=== PATIENT | female | born 1975 | race Caucasian/White ===

== ENCOUNTER 2016-11-02 14:01 | Emergency (ER) | payer OTHER ==
--- NOTE | 2016-11-02 16:21 | DIAGNOSTIC IMAGING REPORT ---
PROCEDURE: XR LUMBAR SPINE 2 OR 3 VIEWS INDICATION: LOWER EXTERMITY TINGLING TECHNIQUE: Three views. COMPARISON: Lumbar MRI 12/22/2009 FINDINGS: There is a fusion of L5-S1. There is new spondylosis at L4-5 with a grade 1 spondylolisthesis. IMPRESSION: 1. New spondylosis and spondylolisthesis at L4-5.
--- NOTE | 2016-11-02 16:26 | ED ORDER SUMMARY ---
..... Patient: SPRING FRITZ OrderSheet VisitID: [id number] [place] [address] 41y, F Registration Date/Time: 11/02/2016 ORDER SHEET Weight: 104.3 kg (stated) Allergies: Doxycycline, Codeine GENERAL ORDERS: Lumbar Spine 2 or 3V Urgent (15:00 11/02/2016 Carmen SLAUGHTER) (Ack 15:15 LTapper) (16:16 MCampbell) MEDICATION ORDERS: Dilaudid IM 1 mg (HIGH ALERT MEDICATION, NOW) (14:59 11/02/2016 Carmen SLAUGHTER) (15:20 EInderbitzen R.N.) Toradol IM 60 mg (NOW) (14:59 11/02/2016 Carmen SLAUGHTER) (15:21 EInderbitzen R.N.) Flexeril PO 10 mg (NOW) (15:00 11/02/2016 Carmen SLAUGHTER) (15:21 EInderbitzen R.N.) IV FLUIDS: ORDER SHEET NOTES: [Electronically signed by Demi Wilson R.N. (16:35 11/02/2016)] [Electronically signed by Jaycee Estes MD (08:09 11/08/2016)] [Electronically locked/signed by Demi Wilson R.N. (16:35 11/02/2016)]
--- NOTE | 2016-11-02 16:26 | ED CLINICAL REPORT ---
Clinical Report - Physicians/Mid Levels [facility] [address] [place] [address] 11/02/2016 14:01 Patient: SPRING FRITZ Time Seen: 14:20. Arrived- By private vehicle. Historian- patient. HISTORY OF PRESENT ILLNESS Chief Complaint: BACK PAIN. It is described as being moderate in degree and in the area of the left side of the upper lumbar spine and radiating to the right thigh. The quality is noted to be "pain" and similar to prior episodes. Modifying factors- worsened by rotation of the body to the right or left, bending over or lifting. Not relieved by anything. Onset was last night and it is still present. No bladder dysfunction, bowel dysfunction, sensory loss or motor loss. Patient notes the possibility of an injury. Mechanism of injury- (PT states she lifted her [id number] off of the toilet 2 weeks ago, but has not had any problems with the back until now.). No other injury. Similar symptoms previously: Occasionally. Recent medical care: Not recently seen/assessed. REVIEW OF SYSTEMS No fever, chills, eye discomfort, headache or depression. No sore throat, cough, difficulty breathing, chest pain or skin rash. No abdominal pain, nausea, vomiting, diarrhea or black stools. No difficulty with urination, urinary frequency, hematuria or bloody stools. All systems otherwise negative, except as recorded above. PAST HISTORY Problems: Obesity. Hypertension. Immunizations. LNMP - Last Normal Menstrual Period. Additional Surgeries: Back Surgery. Dental Surgery. Medications: Lisinopril Oral (Tablet 20 mg) 1 tablet, daily. Methadone 55 mg, daily. Allergies: Codeine. Doxycycline. SOCIAL HISTORY Never smoker. No alcohol use or drug use. ADDITIONAL NOTES The nursing notes have been reviewed. PHYSICAL EXAM Vital Signs: 11/02/2016 14:14 BP: 150/101. HR: 110. RR: 24. O2 saturation: 96%. Temp: 99.1 F. Have been reviewed. Appearance: Alert. No acute distress. (Pt appears moderately uncomfortable.). HEENT: Normal external inspection. Eyes: Pupils equal, round and reactive to light. Neck: Normal inspection. Neck nontender. Painless ROM. CVS: Normal heart rate and rhythm. Heart sounds normal. Pulses normal. Respiratory: No respiratory distress. Breath sounds normal. Abdomen: Normal inspection. Soft and nontender. Back: Moderately limited ROM in the back- in the lumbar spine: decreased flexion, extension, right lateral bending, left lateral bending and rotation to the right and left (R lumbar paraspinal muscular tenderness). Skin: Skin warm and dry. Normal skin color. No rash. Normal skin turgor. Extremities: Extremities exhibit normal ROM. Extremities nontender. Neuro: Oriented X 3. Mood/affect normal. No motor deficit. No sensory deficit. LABS, X-RAYS, AND EKG Pulse Oximetry: 11/02/2016 14:14 O2 saturation: 96%. (FIO2 - room air). Interpretation: normal. PROGRESS AND PROCEDURES Course of Care: Pt was treated symptomatically with Toradol, Dilaudid, and Flexeril, with improvement. No evidence of an emergent condition associated with the pt's back pain. Patient counseled in person regarding the patient's stable condition, diagnosis and need for follow-up. Concerns were addressed. Old medical records reviewed. Disposition: Discharged. Condition: stable and improved. CLINICAL IMPRESSION Chronic nontraumatic lumbar back pain associated with degenerative disc disease of the lumbar spine. Sciatica present on the left. INSTRUCTIONS Apply ice for 15-20 minutes three times a day as needed and until better. Don't apply ice directly to skin and don't use while asleep. (Your x-ray looks good--the hardware is all in place. You will need to follow up with your primary doctor to see if you are in need of another MRI.). Warnings: SEDATIVE MEDICATION: You were given sedative medication during your visit. Do not drive or operate dangerous machinery for 6 hours. GENERAL WARNINGS: Return or contact your physician immediately if your condition worsens or changes unexpectedly, if not improving as expected, or if other problems arise. Your Current Medications: CONTINUE TAKING THE FOLLOWING MEDICATIONS: Lisinopril Oral : Tablet 20 mg, 1 tablet daily. Methadone* : 55 mg daily. Prescription Medications: Hydrocodone/APAP 5mg / 325mg: take 1-2 orally every 6 hours as needed for pain. Dispense five (5). No refill. Flexeril 10 mg: take 1 orally every 8 hours as needed for pain. Dispense twenty (20). No refills. Substitution is permissible. Understanding of the discharge instructions verbalized by patient and family. Follow-up with: [facility], , , [address], , [place], [id number] Follow up. Call for the next available appointment. Reason for referral: Follow up back pain. (Electronically signed by Jaycee Estes MD 11/08/2016 8:09)
--- NOTE | 2016-11-02 16:26 | ED NURSING NOTES ---
Clinical Report - Nurses [facility] [address] [place] [address] 11/02/2016 14:01 Patient: SPRING FRITZ TRIAGE Triage time 14:Nov 02 2016. --14:15 Demi Wilson R.N. Acuity: LEVEL 4. Chief Complaint: BACK PAIN. 14:14 11/02/16. SEPSIS SCREEN: Sepsis Screen: negative. Negative (no infection suspected/documented). TIFFANIE COMA SCORE: [place] Coma Scale: 15- eyes open spontaneously (4); best verbal response- oriented x 4 (5); best motor response- obeys commands (6). --14:23 Demi Wilson R.N. 14:14 11/02/16. BP: 150/101. HR: 110. RR: 24. O2 saturation: 96%. Temp: 99.1 F. Pain level now 10/10. --14:23 Demi Wilson R.N. Weight: 104.3 kg stated. Height/Length: 62 inches Per Patient. BMI: 42.1. --14:14 Demi Wilson R.N. Medications Methadone 55 mg, daily. --14:21 Demi Wilson R.N. Lisinopril Oral (Tablet 20 mg) 1 tablet, daily. --14:22 Demi Wilson R.N. Allergies Doxycycline. --14:17 Demi Wilson R.N. Codeine. --14:17 Demi Wilson R.N. Medication/allergy information source: the patient. --14:23 Demi Wilson R.N. History Arrived by private vehicle. Historian: patient. Accompanied by family. This started today. ( Pt states had back surgery in 2009. No problems until today. She does report that she lifted her mother off a toilet 2 weeks ago.). She has had trouble walking. No history of recent trauma. Treatment PERSONAL SERVICE REPRESENTATIVE: Took Tylenol and ibuprofen. PAST MEDICAL HX: Last normal menstrual period now. Has not received seasonal influenza immunization. SOCIAL HX: Never smoker. No alcohol use or drug use. No infectious disease exposure. ABUSE ASSESSMENT: No report of abuse. SELF HARM ASSESSMENT: A self harm assessment was performed. The patient answered "no" to the question "Have you recently felt down, depressed, or hopeless?", "Have you noticed less interest or pleasure in doing things?", "Do you have thoughts of harming or killing yourself?", "Are you here because you tried to hurt yourself?", "Have you ever tried to hurt yourself before today?", "Have you recently had thoughts about harming or killing others?" and "Do you have any dangerous items in your possession?". FALL RISK ASSESSMENT: Fall risk assessment completed. No fall risk identified. NUTRITIONAL RISK ASSESSMENT: The nutritional risk assessment revealed no deficiencies. FUNCTIONAL ASSESSMENT: Functional assessment: no impairments noted. LEARNING NEEDS ASSESSMENT: The learning needs assessment revealed no barriers. SKIN INTEGRITY ASSESSMENT: Skin integrity risk assessment completed. No skin integrity risk identified. --14:23 Demi Wilson R.N. PROBLEMS: Lumbar fractures from trauma. Obesity. UTI - Urinary Tract Infection. Abdominal Pain. Vomiting. Hypertension. Dental Pain. --14:18 Demi Wilson R.N. Dental Caries [RuleOut]. --14:18 Demi Wilson R.N. ADDITIONAL SURGERIES: Back Surgery. Dental Surgery. Dental Work. --14:18 Demi Wilson R.N. Interventions ID band on patient. --14:23 Demi Wilson R.N. PHYSICAL ASSESSMENT Patient gowned. ( difficulty walking due to pain.). GENERAL / NEURO / PSYCH: Alert. Oriented X 4. RESPIRATORY: Breath sounds within normal limits. CVS: Capillary refill less than 2 seconds. GI / : Abdomen soft. EXTREMITIES: Sensation intact in extremities. BACK: Soft tissue tenderness (top to bottom). --14:26 Demi Wilson R.N. NURSING PROGRESS NOTES 14:14 11/02/16. The initial plan of care for this patient includes an assessment with efforts to address the presence of pain. This plan of care was discussed with the patient. Patient gowned. Reassurance given. Patient identifiers checked. Call light placed in reach. Side rails up x 1. Bed placed in lowest position. Brakes of bed on. Patient ready for evaluation. --14:25 Demi Wilson R.N. 15:18 11/02/2016 Dilaudid (HYDROmorphone HCl PF) IM 1 mg given. Given in the left deltoid. Allergies verified, confirmed 5 rights and sedative warning given to the patient and patient's family. --15:20 Demi Wilson R.N. 15:18 11/02/2016 Toradol (Ketorolac Tromethamine) IM 60 mg given. Given in the right deltoid. Allergies verified and confirmed 5 rights. --15:21 Demi Wilson R.N. 15:19 11/02/2016 Flexeril (Cyclobenzaprine HCl) PO Tablets 10 mg given. Allergies verified and confirmed 5 rights. --15:21 Demi Wilson R.N. late entry - 15:38 11/02/16. ( Patient was able to get out of bed on own and walk to bathroom prior to going to x ray. Steady gait, no limping. no distress). --15:39 Demi Wilson R.N. <<STRICKEN ENTRY-- 15:38 11/02/16. Patient walked to radiology. --15:38 Demi Wilson R.N. --END STRIKE>> Correction --15:53 Demi Wilson R.N. 15:53 11/02/16. Patient returned from radiology by wheelchair. (patient now states too much pain to walk). --15:53 Demi Wilson R.N. DISPOSITION / DISCHARGE 16:35 11/02/16. Condition at departure: improved and stable. The goals identified in the patient's plan of care were met. No learning barriers present. Reviewed medication(s) side effects, precautions, dosing and course information. Prescription(s) given to the patient. Reviewed referral to an orthopedic surgeon for followup (pain management clinic/methadone clinic). Patient verbalized understanding. Written instructions provided in Setswana. The patient was discharged home and accompanied by family. She left the Emergency Department ambulatory and via private vehicle. Spouse driving. --16:35 Demi Wilson R.N. 16:35 11/02/16. BP: 156/87. HR: 100. RR: 20. O2 saturation: 100%. Temp: 98.0 F. Pain level now 05/16. --16:35 Demi Wilson R.N. Departure time: 16:35 Nov 02 2016. --16:35 Demi Wilson R.N. Locked/Released at 11/02/2016 16:35 by Demi Wilson R.N.
--- NOTE | 2016-11-02 16:26 | ED ORDER SUMMARY ---
..... Patient: SPRING FRITZ OrderSheet [facility] VisitID: [id number] [place] [address] 41y, F Registration Date/Time: 11/02/2016 ORDER SHEET Weight: 104.3 kg (stated) Allergies: Doxycycline, Codeine GENERAL ORDERS: Lumbar Spine 2 or 3V Urgent (15:00 11/02/2016 Carmen SLAUGHTER) (Ack 15:15 LTapper) (16:16 MCampbell) MEDICATION ORDERS: Dilaudid IM 1 mg (HIGH ALERT MEDICATION, NOW) (14:59 11/02/2016 Carmen SLAUGHTER) (15:20 EInderbitzen R.N.) Toradol IM 60 mg (NOW) (14:59 11/02/2016 Carmen SLAUGHTER) (15:21 EInderbitzen R.N.) Flexeril PO 10 mg (NOW) (15:00 11/02/2016 Carmen SLAUGHTER) (15:21 EInderbitzen R.N.) IV FLUIDS: ORDER SHEET NOTES: [Electronically signed by Demi Wilson R.N. (16:35 11/02/2016)] [Electronically signed by Jaycee Estes MD (08:09 11/08/2016)] [Electronically locked/signed by Demi Wilson R.N. (16:35 11/02/2016)]
--- NOTE | 2016-11-02 16:26 | ED CLINICAL REPORT ---
Clinical Report - Physicians/Mid Levels [facility] [address] [place] [address] 11/02/2016 14:01 Patient: SPRING FRITZ Time Seen: 14:20. Arrived- By private vehicle. Historian- patient. HISTORY OF PRESENT ILLNESS Chief Complaint: BACK PAIN. It is described as being moderate in degree and in the area of the left side of the upper lumbar spine and radiating to the right thigh. The quality is noted to be "pain" and similar to prior episodes. Modifying factors- worsened by rotation of the body to the right or left, bending over or lifting. Not relieved by anything. Onset was last night and it is still present. No bladder dysfunction, bowel dysfunction, sensory loss or motor loss. Patient notes the possibility of an injury. Mechanism of injury- (PT states she lifted her byukmo-qh-ccx off of the toilet 2 weeks ago, but has not had any problems with the back until now.). No other injury. Similar symptoms previously: Occasionally. Recent medical care: Not recently seen/assessed. REVIEW OF SYSTEMS No fever, chills, eye discomfort, headache or depression. No sore throat, cough, difficulty breathing, chest pain or skin rash. No abdominal pain, nausea, vomiting, diarrhea or black stools. No difficulty with urination, urinary frequency, hematuria or bloody stools. All systems otherwise negative, except as recorded above. PAST HISTORY Problems: Obesity. Hypertension. Immunizations. LNMP - Last Normal Menstrual Period. Additional Surgeries: Back Surgery. Dental Surgery. Medications: Lisinopril Oral (Tablet 20 mg) 1 tablet, daily. Methadone 55 mg, daily. Allergies: Codeine. Doxycycline. SOCIAL HISTORY Never smoker. No alcohol use or drug use. ADDITIONAL NOTES The nursing notes have been reviewed. PHYSICAL EXAM Vital Signs: 11/02/2016 14:14 BP: 150/101. HR: 110. RR: 24. O2 saturation: 96%. Temp: 99.1 F. Have been reviewed. Appearance: Alert. No acute distress. (Pt appears moderately uncomfortable.). HEENT: Normal external inspection. Eyes: Pupils equal, round and reactive to light. Neck: Normal inspection. Neck nontender. Painless ROM. CVS: Normal heart rate and rhythm. Heart sounds normal. Pulses normal. Respiratory: No respiratory distress. Breath sounds normal. Abdomen: Normal inspection. Soft and nontender. Back: Moderately limited ROM in the back- in the lumbar spine: decreased flexion, extension, right lateral bending, left lateral bending and rotation to the right and left (R lumbar paraspinal muscular tenderness). Skin: Skin warm and dry. Normal skin color. No rash. Normal skin turgor. Extremities: Extremities exhibit normal ROM. Extremities nontender. Neuro: Oriented X 3. Mood/affect normal. No motor deficit. No sensory deficit. LABS, X-RAYS, AND EKG Pulse Oximetry: 11/02/2016 14:14 O2 saturation: 96%. (FIO2 - room air). Interpretation: normal. PROGRESS AND PROCEDURES Course of Care: Pt was treated symptomatically with Toradol, Dilaudid, and Flexeril, with improvement. No evidence of an emergent condition associated with the pt's back pain. Patient counseled in person regarding the patient's stable condition, diagnosis and need for follow-up. Concerns were addressed. Old medical records reviewed. Disposition: Discharged. Condition: stable and improved. CLINICAL IMPRESSION Chronic nontraumatic lumbar back pain associated with degenerative disc disease of the lumbar spine. Sciatica present on the left. INSTRUCTIONS Apply ice for 15-20 minutes three times a day as needed and until better. Don't apply ice directly to skin and don't use while asleep. (Your x-ray looks good--the hardware is all in place. You will need to follow up with your primary doctor to see if you are in need of another MRI.). Warnings: SEDATIVE MEDICATION: You were given sedative medication during your visit. Do not drive or operate dangerous machinery for 6 hours. GENERAL WARNINGS: Return or contact your physician immediately if your condition worsens or changes unexpectedly, if not improving as expected, or if other problems arise. Your Current Medications: CONTINUE TAKING THE FOLLOWING MEDICATIONS: Lisinopril Oral : Tablet 20 mg, 1 tablet daily. Methadone* : 55 mg daily. Prescription Medications: Hydrocodone/APAP 5mg / 325mg: take 1-2 orally every 6 hours as needed for pain. Dispense five (5). No refill. Flexeril 10 mg: take 1 orally every 8 hours as needed for pain. Dispense twenty (20). No refills. Substitution is permissible. Understanding of the discharge instructions verbalized by patient and family. Follow-up with: [facility], , , [address], , [place], [address] Follow up. Call for the next available appointment. Reason for referral: Follow up back pain. (Electronically signed by Jaycee Estes MD 11/08/2016 8:09)
--- NOTE | 2016-11-08 08:09 | ED MAR SUMMARY ---
..... Medication Administration Record [facility] [address] [place] [address] Patient: SPRING FRITZ Visit ID: [id number] 41y, F Weight: 104.3 kg Height/Length: 62 in BMI: 42.1 ALLERGIES: Codeine, Doxycycline Given 15:18 11/02/2016 Demi Wilson R.N. Medication Administered: DILAUDID [IM] (HYDROMORPHONE HCL PF), Dose: 1 mg IM. Medication Ordered: Dilaudid IM 1 mg (HIGH ALERT MEDICATION, NOW). Given 15:11/02/2016 Demi Wilson R.N. Medication Administered: TORADOL [IM] (KETOROLAC TROMETHAMINE), Dose: 60 mg IM. Medication Ordered: Toradol IM 60 mg (NOW). Given 15:11/02/2016 Demi Wilson R.N. Medication Administered: FLEXERIL [PO] (CYCLOBENZAPRINE HCL), Dose: 10 mg Tablets PO. Medication Ordered: Flexeril PO 10 mg (NOW).
--- NOTE | 2016-11-08 08:09 | ED MED RECONCILIATION SUMMARY ---
Patient: SPRING FRITZ Medication Reconciliation Report [facility] VisitID: [id number] [place] [address] 41y, F Registration Date/Time: 11/02/2016 Weight: 104.3 kg Height/Length: 62 in. BMI: 42.1 ALLERGIES: Codeine, Doxycycline The patient's Home Medications are listed below: CONTINUE TAKING THE FOLLOWING MEDICATIONS: Lisinopril Oral (20 mg) 1 tablet, daily Methadone 55 mg, daily The source(s) of the original Home Medication information: patient The following Medications were given to the patient in the Emergency Department: Dilaudid [IM] IM 1 mg, administered: 11/02/2016 3:18:00 PM Toradol [IM] IM 60 mg, administered: 11/02/2016 3:18:00 PM Flexeril [PO] PO 10 mg, administered: 11/02/2016 3:19:00 PM The following Medications were prescribed to the patient: Hydrocodone/APAP 5mg / 325mg: take 1-2 orally every 6 hours as needed for pain. Dispense five (5). No refill. -- Jaycee Estes MD Flexeril 10 mg: take 1 orally every 8 hours as needed for pain. Dispense twenty (20). No refills. Substitution is permissible. -- Jaycee Estes MD
--- NOTE | 2016-11-08 08:09 | ED DISCHARGE INSTRUCTIONS ---
Patient: SPRING FRITZ General Instructions [facility] VisitID: [id number] [address] [place] [address] 41y, F Registration Date/Time: 11/02/2016 Chronic nontraumatic lumbar back pain associated with degenerative disc disease of the lumbar spine. Sciatica present on the left. INSTRUCTIONS Apply ice for 15-20 minutes three times a day as needed and until better. Don't apply ice directly to skin and don't use while asleep. (Your x-ray looks good--the hardware is all in place. You will need to follow up with your primary doctor to see if you are in need of another MRI.). Warnings: SEDATIVE MEDICATION: You were given sedative medication during your visit. Do not drive or operate dangerous machinery for 6 hours. GENERAL WARNINGS: Return or contact your physician immediately if your condition worsens or changes unexpectedly, if not improving as expected, or if other problems arise. Your Current Medications: CONTINUE TAKING THE FOLLOWING MEDICATIONS: Lisinopril Oral : Tablet 20 mg, 1 tablet daily. Methadone* : 55 mg daily. Prescription Medications: Hydrocodone/APAP 5mg / 325mg: take 1-2 orally every 6 hours as needed for pain. Dispense five (5). No refill. Flexeril 10 mg: take 1 orally every 8 hours as needed for pain. Dispense twenty (20). No refills. Substitution is permissible. Understanding of the discharge instructions verbalized by patient and family. Follow-up with: [facility], , , [address], [place], [address] Follow up. Call for the next available appointment. Reason for referral: Follow up back pain. ADDITIONAL INFORMATION Sciatica Sciatica ("Lumbar Radiculopathy") causes a pain that spreads from the lower back down into the buttock, hip and leg. Sometimes leg pain can occur without any back pain. Sciatica is due to irritation or pressure on a spinal nerve as it comes out of the spinal canal. This is most often due to a bulge or rupture of a nearby spinal disk (the cartilage cushion between each spinal bone), which presses on a nearby nerve. Other causes include spinal stenosis (narrowing of the spinal canal) and spasm of the pyriform muscle (a muscle in the buttocks that the sciatic nerve passes through). Sciatica may begin after a sudden twisting/bending force (such as in a car accident), or sometimes after a simple awkward movement. In either case, muscle spasm is commonly present and contributes to the pain. The diagnosis of sciatica is made from the symptoms and physical exam. Unless you had a physical injury (such as a car accident or fall), X-rays are usually not ordered for the initial evaluation of sciatica because the nerves and disks cannot be seen on an x-ray. If signs of a compressed nerve are present (for example, loss of tendon reflex or strength in the leg), an MRI (magnetic resonance imaging) scan will need to be scheduled as an outpatient. Most sciatica (80-90%) gets better with medicine, exercise, physical therapy. If symptoms continue after at least three months of medical treatment, surgery may be considered. Home Care: You may need to stay in bed the first few days. But, as soon as possible, begin sitting or walking to avoid problems with prolonged bed rest. When in bed, try to find a position of comfort. A firm mattress is best. Try lying flat on your back with pillows under your knees. You can also try lying on your side with your knees bent up towards your chest and a pillow between your knees. Avoid prolonged sitting. This puts more stress on the lower back than standing or walking. Some persons find relief with heat (hot shower, hot bath or heating pad) and massage, while others prefer cold packs (crushed or cubed ice in a plastic bag, wrapped in a towel). Try both and use the method that feels best for 20 minutes several times a day. You may use acetaminophen (Tylenol) or ibuprofen (Motrin, Advil) to control pain, unless another pain medicine was prescribed. [ NOTE: If you have chronic liver or kidney disease or ever had a stomach ulcer or GI bleeding, talk with your doctor before using these medicines.] Be aware of safe lifting methods and do not lift anything over 15 pounds until all the pain is gone. Follow Up with your doctor or this facility if your symptoms do not start to improve after one week. Physical therapy or further testing may be needed. [NOTE: If X-rays were taken, they will be reviewed by a radiologist. You will be notified of any new findings that may affect your care.] Get Prompt Medical Attention if any of the following occur: Pain becomes worse, not controlled by the prescribed medicine Weakness or numbness in one or both legs Numbness in the groin, genital area Loss of bowel or bladder control You have been given the following additional information: Back Pain W/ Sciatica (Electronically signed by Jaycee Estes MD 11/08/2016 8:09)
--- NOTE | 2016-11-08 08:09 | ED MED RECONCILIATION SUMMARY ---
Patient: SPRING FRITZ Medication Reconciliation Report [facility] VisitID: [id number] [place] [address] 41y, F Registration Date/Time: 11/02/2016 Weight: 104.3 kg Height/Length: 62 in. BMI: 42.1 ALLERGIES: Codeine, Doxycycline The patient's Home Medications are listed below: CONTINUE TAKING THE FOLLOWING MEDICATIONS: Lisinopril Oral (20 mg) 1 tablet, daily Methadone 55 mg, daily The source(s) of the original Home Medication information: patient The following Medications were given to the patient in the Emergency Department: Dilaudid [IM] IM 1 mg, administered: 11/02/2016 3:18:00 PM Toradol [IM] IM 60 mg, administered: 11/02/2016 3:18:00 PM Flexeril [PO] PO 10 mg, administered: 11/02/2016 3:19:00 PM The following Medications were prescribed to the patient: Hydrocodone/APAP 5mg / 325mg: take 1-2 orally every 6 hours as needed for pain. Dispense five (5). No refill. -- Jaycee Estes MD Flexeril 10 mg: take 1 orally every 8 hours as needed for pain. Dispense twenty (20). No refills. Substitution is permissible. -- Jaycee Estes MD
--- NOTE | 2016-11-08 08:09 | ED MAR SUMMARY ---
..... Medication Administration Record [facility] [address] [place] [address] Patient: SPRING FRITZ Visit ID: [id number] 41y, F Weight: 104.3 kg Height/Length: 62 in BMI: 42.1 ALLERGIES: Codeine, Doxycycline Given 15:18 11/02/2016 Demi iWlson R.N. Medication Administered: DILAUDID [IM] (HYDROMORPHONE HCL PF), Dose: 1 mg IM. Medication Ordered: Dilaudid IM 1 mg (HIGH ALERT MEDICATION, NOW). Given 15:11/02/2016 Demi Wilson R.N. Medication Administered: TORADOL [IM] (KETOROLAC TROMETHAMINE), Dose: 60 mg IM. Medication Ordered: Toradol IM 60 mg (NOW). Given 15:11/02/2016 Demi Wilson R.N. Medication Administered: FLEXERIL [PO] (CYCLOBENZAPRINE HCL), Dose: 10 mg Tablets PO. Medication Ordered: Flexeril PO 10 mg (NOW).
== END 2016-11-02 16:35 | disposition home or self-care (01) ==
LOC: ED SRH 14:01
DX: M51.16 Intervertebral disc disorders with radiculopathy, lumbar region (principal); I10 Essential (primary) hypertension; Z88.1 Allergy status to other antibiotic agents; Z88.5 Allergy status to narcotic agent